=== PATIENT | male | born 1970 | race Caucasian/White ===

== ENCOUNTER 2020-11-12 16:09 | Emergency (ER) | payer OTHER ==
[2020-11-12 16:29] VITALS: TEMP 98.1; BMI 32.1
[2020-11-12] MEDS ORDERED: KETOROLAC TROMETHAMINE 30 MG/1 ML VIAL IM ONE (17:27)
[2020-11-12] MEDS ORDERED: KETOROLAC TROMETHAMINE 30 MG/1 ML VIAL ONE (17:29)
[2020-11-12 17:32] VITALS: BP 139/99; PULSE 89
== END 2020-11-12 18:35 | disposition home or self-care (01) ==
LOC: FER 16:09
PROC: 3E023GC Introduction of Other Therapeutic Substance into Muscle, Percutaneous Approach (ICD-10-PCS; principal; 2020-11-12)
DX: M54.42 Lumbago with sciatica, left side (principal)
CPT/HCPCS: 70450-TC; 99284-25